=== PATIENT | female | born 2005 | race Caucasian/White ===

== ENCOUNTER 2024-10-31 06:02 | Inpatient (IN) | payer BC, MEDICAID ==
[2024-10-31] MEDS: Lactated Ringers 1,000 ML IV SCH (06:30)
[2024-10-31] MEDS ORDERED: Lidocaine 1% 50 ML MDV INJECT PRN (06:35)
[2024-10-31] MEDS ORDERED: Sodium Chloride 0.9% 10 ML Syringe FLUSH PRN (06:35)
[2024-10-31] MEDS ORDERED: Ondansetron 4 MG/2 ML SDV IVPUSH PRN (06:35)
[2024-10-31] MEDS ORDERED: Nalbuphine 10 MG/1 ML Vial IVPUSH PRN (06:35)
[2024-10-31] MEDS ORDERED: Oxytocin/0.9 % Sodium Chloride 30 UNIT/500 ML BAG IV SCH ×2 (06:45→15:20)
[2024-10-31 06:49] LABS: BASOPHILS PERCENT AUTO 0.2 % (0.0-1.0); EOSINOPHILS PERCENT AUTO 0.1 % (0.0-6.0); HEMATOCRIT 34.7 % (37.0-47.0); HEMOGLOBIN 11.8 gm/dl (12.0-16.0); IMMATURE GRAN ABSOLUTE AUTO 0.06 K/mm3 (0.00-0.05); IMMATURE GRAN PERCENT AUTO 0.4 % (0.0-0.4); LYMPHOCYTES ABSOLUTE AUTO 1.3 K/mm3 (1.0-4.8); LYMPHOCYTES PERCENT AUTO 8.3 % (24.0-44.0); MEAN CORPUSCULAR HEMOGLOBIN 29.9 pg (28.0-32.0); MEAN CORPUSCULAR VOLUME 88.1 fl (83.0-99.0); MEAN PLATELET VOLUME 11.2 fl (9.4-12.3); MONOCYTES ABSOLUTE AUTO 0.4 K/mm3 (0.0-0.8); MONOCYTES PERCENT AUTO 2.7 % (0.0-8.0); NEUTROPHILS PERCENT AUTO 88.3 % (41.0-71.0); PLATELET COUNT,PLT 183 K/mm3 (150-400); RED BLOOD CELL COUNT 3.94 M/mm3 (4.10-5.30); WHITE BLOOD CELL COUNT,WBC 15.81 K/mm3 (3.9-11.3)
[2024-10-31] MEDS ORDERED: ePHEDrine 50 MG/ML SDV IVPUSH PRN (07:16)
[2024-10-31] MEDS ORDERED: diphenhydrAMINE 50 MG/ML SDV IVPUSH PRN (07:16)
[2024-10-31] MEDS: Bupivacaine/fentaNYL/NS 100 ML Bag EPIDUR PRN (07:23)
[2024-10-31] MEDS: Oxytocin/0.9 % Sodium Chloride 30 UNIT/500 ML BAG IV SCH (13:05)
[2024-10-31] MEDS ORDERED: Famotidine 20 MG Tab PO PRN (15:20)
[2024-10-31] MEDS ORDERED: Acetaminophen 325 MG Tab PO PRN (15:20)
[2024-10-31] MEDS ORDERED: Docusate Sodium 100 MG Cap PO PRN (15:20)
[2024-10-31] MEDS ORDERED: Magnesium Hydroxide 400 MG/5 ML Susp 30 ML Cup PO PRN (15:20)
[2024-10-31] MEDS ORDERED: Hydrocortisone Acetate 25 MG Supp RECTAL PRN (15:20)
[2024-10-31] MEDS ORDERED: Aluminum Hydroxide/Magnesium Hydroxide/Simethicone Susp 30 ML Cup PO PRN (15:20)
[2024-10-31] MEDS ORDERED: Simethicone 80 MG Tab.Chew PO PRN (15:20)
[2024-10-31] MEDS: Witch Hazel Medicated Pads 40/Jar TOP PRN (15:47)
[2024-10-31] MEDS: Benzocaine/Menthol 20%-0.5% Spray 78 GM Cannister TOP PRN (15:48)
[2024-10-31] MEDS: Ibuprofen 600 MG Tab PO SCH (15:49)
[2024-10-31] MEDS: Sodium Chloride 0.9% 10 ML Syringe FLUSH SCH (18:22)
[2024-11-01] MEDS: Prenatal Multivitamin with Calcium/Folic Acid/Iron Tab PO SCH (09:32)
[2024-11-02] MEDS: Measles, Mumps & Rubella Vaccine 0.5 ML SDV SUBCUT ONE (14:56)
[2024-11-02] MEDS: Ibuprofen 600 MG Tab PO SCH (15:52)
== END 2024-11-02 15:37 | disposition home or self-care (01) | DRG 807 ==
LOC: JD.OBCHECK 06:02 → JD.OB 06:14 → OBSVTOIN 13:40 → JD.OB 13:40
PROVIDERS: ADMIT Obstetrics & Gynecology; ATTEND Obstetrics & Gynecology
PROC: 0KQM0ZZ Repair Perineum Muscle, Open Approach (ICD-10-PCS; principal; 2024-10-31)
PROC: 3E0234Z Introduction of Serum, Toxoid and Vaccine into Muscle, Percutaneous Approach (ICD-10-PCS; principal; 2024-10-31)
PROC: 3E0R3BZ Introduction of Anesthetic Agent into Spinal Canal, Percutaneous Approach (ICD-10-PCS; principal; 2024-10-31)
PROC: 00HU33Z Insertion of Infusion Device into Spinal Canal, Percutaneous Approach (ICD-10-PCS; principal; 2024-10-31)
PROC: 0UQMXZZ Repair Vulva, External Approach (ICD-10-PCS; principal; 2024-10-31)
PROC: 10E0XZZ Delivery of Products of Conception, External Approach (ICD-10-PCS; principal; 2024-10-31)
DX: O42.02 Full-term premature rupture of membranes, onset of labor within 24 hours of rupture (principal); Z37.0 Single live birth; O77.0 Labor and delivery complicated by meconium in amniotic fluid; O69.81X0 Labor and delivery complicated by cord around neck, without compression, not applicable or unspecified; O70.1 Second degree perineal laceration during delivery; O70.0 First degree perineal laceration during delivery; Z3A.40 40 weeks gestation of pregnancy; Z23 Encounter for immunization
CPT/HCPCS: 36415; 51702; 59025; 59409; 85025; 86592; 86850; 86900; 86901; 90471; 90707; A9270-GY; J3490; J7120; J7999